=== PATIENT | female | born 1975 | race Caucasian/White ===

== ENCOUNTER 2017-02-04 11:27 | Day surgery (SDC) | payer BC ==
[~2017-02-04 11:27] MED LIST: Lactated Ringers 1,000 ML IV SCH; Lidocaine 2% 5 ML SDV ONE; Midazolam 1 MG/ML 2 ML SDV ONE; Ondansetron 4 MG/2 ML SDV ONE; Propofol 200 MG/20 ML SDV ONE; fentaNYL 250 MCG/5 ML SDV ONE
--- NOTE | 2017-02-04 12:54 | PCM.PREANE ---
Preanesthetic Assessment - Anesthesia/Transfusion/Family Hx Anesthesia History: Prior Anesthesia Without Reaction Family History of Anesthesia Reaction: No Transfusion History: No Prior Transfusion(s) Intubation History: Unknown - Review of Systems General: No Symptoms Pulmonary: No Symptoms Cardiovascular: No Symptoms Gastrointestinal: No symptoms Neurological: No Symptoms Other: Reports: None - Physical Assessment O2 Sat by Pulse Oximetry: 99 Respiratory Rate: 16 Vital Signs: Last Vital Signs Temp 37.0 C 02/04/17 11:45 Pulse 62 02/04/17 11:45 Resp 16 02/04/17 11:45 BP 116/80 02/04/17 11:45 Pulse Ox 99 02/04/17 11:45 Height: 1.66 m Weight: 73.028 kg ASA Class: 2 Mental Status: Alert & Oriented x3 Airway Class: Mallampati = 2 Dentition: Reports: Normal Dentition Thyro-Mental Finger Breadths: 3 Mouth Opening Finger Breadths: 3 ROM/Head Extension: Full Lungs: Clear to auscultation, Normal respiratory effort Cardiovascular: Regular Rate, Regular Rhythm - Allergies Allergies/Adverse Reactions: Allergies Allergy/AdvReac Type Severity Reaction Status Date / Time No Known Allergies Allergy Verified 12/21/15 09:08 - Blood Blood Available: No - Anesthesia Plan Pre-Op Medication Ordered: None - Acknowledgements Anesthesia Type Planned: General Anesthesia Pt an Appropriate Candidate for the Planned Anesthesia: Yes Alternatives and Risks of Anesthesia Discussed w Pt/Guardian: Yes Pt/Guardian Understands and Agrees with Anesthesia Plan: Yes PreAnesthesia Questionnaire HEENT History: Reports: Sinusitis Genitourinary History: Reports: None [employer] HELPER History: Reports: Dysfunctional uterine bleeding, Polycystic Ovaries, , Spontaneous Endocrine/Metabolic History: Reports: Other (see below) Other Endocrine/Metabolic History: hx hypothyroidism in the past, no longer on meds - Past Surgical History Head Surgeries/Procedures: Reports: None GI Surgical History: Reports: Bariatric procedure, Other (see below) Other GI Surgeries/Procedures: lap band surgery Female Surgical History: Reports: section (x3), Dilitation & evacuation Other Female Surgeries/Procedures: c/section x3, D&C - SUBSTANCE USE Smoking Status *Q: Never Smoker Second Hand Smoke Exposure: No Recreational Drug Use History: No - HOME MEDS Home Medications: Home Meds . [No Known Home Meds] 12/21/15 [History] - CURRENT (IN HOUSE) MEDS Current Meds: Current Medications Fentanyl (Sublimaze) 50 mcg IVPUSH Q5M PRN PRN Reason: Pain (severe 7-10) Stop: 02/05/17 11:00 Lactated Ringer's (Ringers, Lactated) 1,000 mls @ 125 mls/hr IV ASDIRECTED [facility] Discontinued Medications Fentanyl (Sublimaze) Confirm Administered Dose 250 mcg .ROUTE .STK-MED ONE Stop: 02/04/17 11:20 Lidocaine (Xylocaine-Mpf 2%) Confirm Administered Dose 5 ml .ROUTE .STK-MED ONE Stop: 02/04/17 11:20 Midazolam HCl (Versed 1 Mg/Ml) Confirm Administered Dose 2 mg .ROUTE .STK-MED ONE Stop: 02/04/17 11:20 Ondansetron HCl (Zofran) Confirm Administered Dose 4 mg .ROUTE .STK-MED ONE Stop: 02/04/17 11:20 Propofol (Diprivan 20 Ml) Confirm Administered Dose 200 mg .ROUTE .STK-MED ONE Stop: 02/04/17 11:20
[2017-02-04] MEDS ORDERED: ceFAZolin 1 GM in Premix Bag 1 BAG IV ONE (14:03)
--- NOTE | 2017-02-04 14:12 | PCM.OPNOTE ---
- General Post-Op/Procedure Note Date of Surgery/Procedure: 02/04/17 Operative Procedure(s): Diagnostic hysteroscopy, endometrial biopsy Findings: Severely adhesed intrauterine cavity--multiple dense synechiae. Pre Op Diagnosis: Menorrhagia Post-Op Diagnosis: same Anesthesia Technique: General LMA Primary Surgeon: Rosy Wellington Pathology: Endometrial biopsy Fluid Replacement, Intraop: 1,000 (2000 mL NS deficit) EBL in mLs: 10 Complications: none known Condition: Good Free Text/Narrative:: Dictation [id number]
[2017-02-04] MEDS: fentaNYL 100 MCG/2 ML SDV IVPUSH PRN ×2 (14:19→14:24)
--- NOTE | 2017-02-04 15:26 | PCM48HPAN ---
Post Anesthesia Note - EVALUATION WITHIN 48HRS OF ANESTHETIC Vital Signs in Normal Range: Yes Patient Participated in Evaluation: Yes Respiratory Function Stable: Yes Airway Patent: Yes Cardiovascular Function Stable: Yes Hydration Status Stable: Yes Pain Control Satisfactory: Yes Nausea and Vomiting Control Satisfactory: Yes Mental Status Recovered: Yes
[2017-02-04 16:21] VITALS: BP 114/78
--- NOTE | 2017-02-05 09:32 | OR ---
SURGEON: Rosy Wellington M.D. DATE OF PROCEDURE: PREOPERATIVE DIAGNOSES: 1. Menorrhagia. 2. Stenotic cervix. POSTOPERATIVE DIAGNOSES: 1. Menorrhagia. 2. Stenotic cervix. 3. Intrauterine adhesions. PROCEDURE: 1. Diagnostic hysteroscopy. 2. Endometrial biopsy. ANESTHESIA: General LMA. ESTIMATED BLOOD LOSS: 10 mL. FLUIDS: 1000 mL crystalloid. Fluid deficit 2000 mL normal saline with hysteroscopy. COMPLICATIONS: Uterine perforation. DISPOSITION: The patient to PACU, stable. PROCEDURE DETAILS: Kaitlin is a 41-year-old G3, P3, who presents today for further evaluation of menorrhagia. While being evaluated in the clinic, attempted endometrial biopsy was performed; however, she has significantly stenotic cervical os making the exam extremely uncomfortable for the patient. An attempted dilatation retrieved only a small amount of tissue, therefore given the significant discomfort, the patient opted to proceed with further evaluation hysteroscopically with further endometrial sampling to be performed and if benign on frozen section to proceed with thermal endometrial ablation. Pelvic sonogram was normal. On the day of procedure, once again reviewed the procedure, questions were answered, and informed consent was obtained. The patient was taken to the operative room, where she underwent general LMA, was placed in modified dorsal lithotomy position and was prepped and draped in the usual sterile fashion. SCDs lower extremities. The bladder was drained. Time-out was performed. After being prepped and draped in the usual sterile fashion, the speculum was introduced in the vagina. The posterior lip of the cervix was grasped with a single-tooth tenaculum. The cervix was gently dilated to 3 mm and the fundus was sounded to be 8 mm. Endometrial sampling was performed at this time. The cervix was now gently dilated to 5 mm. The hysteroscope was introduced using normal saline for distention media. There were significant adhesions and synechiae present. I am not able to clearly identify ostia. There was just a webbing of synechiae noted and while visualizing the cavity it was noted there was an increasing fluid deficit and with further evaluation, I was able to see a region of perforation along the posterior fundal region of the uterus. Therefore, the hysteroscope was removed. Further gentle endocervical endometrial biopsy was performed and this specimen will be sent to Pathology for further analysis. However, I am not able to proceed with further management in the form of ablation given the stenotic and adhesed uterine cavity and the region of perforation. Therefore, all instruments were removed from the vagina. Hemostasis appears evident. The patient has tolerated the procedure well. She will go to PACU in stable condition. Specimens to pathology. GUILLERMO / RENETTA /[id number] ESTEFANY
== END 2017-02-04 15:42 | disposition home or self-care (01) ==
LOC: MW.SDS 11:27
PROVIDERS: ATTEND Obstetrics & Gynecology
DX: N92.0 Excessive and frequent menstruation with regular cycle (principal); N88.2 Stricture and stenosis of cervix uteri; E03.9 Hypothyroidism, unspecified; Z98.890 Other specified postprocedural states; D64.9 Anemia, unspecified
CPT/HCPCS: 58558; J0690; J2250; J2405; J3010; J7120; 00952; 88305; J2704

== ENCOUNTER 2017-05-19 06:22 | Day surgery (SDC) | payer BC ==
[~2017-05-19 06:22] MED LIST changes: -Lactated Ringers 1,000 ML IV SCH; -Lidocaine 2% 5 ML SDV ONE; -Midazolam 1 MG/ML 2 ML SDV ONE; -Ondansetron 4 MG/2 ML SDV ONE; -Propofol 200 MG/20 ML SDV ONE; +Sodium Chloride 0.9% 10 ML Syringe FLUSH PRN; +Sodium Chloride 0.9% 2.5 ML Syringe FLUSH PRN; +ceFAZolin 1 GM in Premix Bag 1 BAG IV ONE; -fentaNYL 250 MCG/5 ML SDV ONE
[2017-05-19] MEDS ORDERED: Lactated Ringers 1,000 ML IV SCH (07:00)
[2017-05-19] MEDS ORDERED: Bupivacaine 0.25% 10 ML SDV ONE (07:14)
[2017-05-19] MEDS ORDERED: Methylene Blue 50 MG/10 ML Ampule ONE (07:14)
[2017-05-19] MEDS ORDERED: Fluorescein 5 ML Vial ONE (07:14)
--- NOTE | 2017-05-19 07:16 | PCM.PREANE ---
Preanesthetic Assessment - Anesthesia/Transfusion/Family Hx Anesthesia History: Prior Anesthesia Without Reaction Family History of Anesthesia Reaction: No Transfusion History: No Prior Transfusion(s) Intubation History: Unknown - Review of Systems General: No Symptoms Pulmonary: No Symptoms Cardiovascular: No Symptoms Gastrointestinal: No Symptoms Neurological: No Symptoms Other: Reports: None - Physical Assessment NPO Status Date: 05/18/17 NPO Status Time: 19:00 O2 Sat by Pulse Oximetry: 98 Respiratory Rate: 16 Vital Signs: Last Vital Signs Temp 36.6 C 05/19/17 06:49 Pulse 71 05/19/17 06:49 Resp 16 05/19/17 06:49 BP 134/78 05/19/17 06:49 Pulse Ox 98 05/19/17 06:49 Height: 1.66 m Weight: 73.482 kg ASA Class: 2 Mental Status: Alert & Oriented x3 Airway Class: Mallampati = 1 Dentition: Reports: Normal Dentition ROM/Head Extension: Full Lungs: Clear to Auscultation Cardiovascular: Regular Rate - Lab Values: Laboratory Last Values WBC 5.26 K/uL (4.0-11.0) 05/19/17 06:50 RBC 4.38 M/uL (4.30-5.90) 05/19/17 06:50 Hgb 10.0 g/dL (12.0-16.0) L 05/19/17 06:50 Hct 33.2 % (36.0-46.0) L 05/19/17 06:50 MCV 75.8 fL (80.0-98.0) L 05/19/17 06:50 MCH 22.8 pg (27.0-32.0) L 05/19/17 06:50 MCHC 30.1 g/dL (31.0-37.0) L 05/19/17 06:50 RDW Std Deviation 47.1 fl (28.0-62.0) 05/19/17 06:50 RDW Coeff of Star 20 % (11.0-15.0) H 05/19/17 06:50 Plt Count 344 K/uL (150-400) 05/19/17 06:50 MPV 9.70 fL (7.40-12.00) 05/19/17 06:50 Nucleated RBC % 0.0 /100WBC 05/19/17 06:50 Nucleated RBCs # 0 K/uL 05/19/17 06:50 - Allergies Allergies/Adverse Reactions: Allergies Allergy/AdvReac Type Severity Reaction Status Date / Time No Known Allergies Allergy Verified 05/13/17 15:57 - Anesthesia Plan Pre-Op Medication Ordered: None - Acknowledgements Anesthesia Type Planned: General Anesthesia Pt an Appropriate Candidate for the Planned Anesthesia: Yes Alternatives and Risks of Anesthesia Discussed w Pt/Guardian: Yes Pt/Guardian Understands and Agrees with Anesthesia Plan: Yes PreAnesthesia Questionnaire HEENT History: Genitourinary History: Reports: None [employer] MEMBER History: Reports: Dysfunctional Uterine Bleeding, Polycystic Ovaries, , Spontaneous Endocrine/Metabolic History: Reports: Other (See Below) Other Endocrine/Metabolic History: hx hypothyroidism in the past, no longer on meds Hematologic History: Reports: Anemia - Past Surgical History Head Surgeries/Procedures: Reports: None GI Surgical History: Reports: Bariatric Procedure, Other (See Below) Other GI Surgeries/Procedures: lap band surgery, later removed Female Surgical History: Reports: Section, Dilitation & Evacuation Other Female Surgeries/Procedures: c/section x3, D&C - SUBSTANCE USE Smoking Status *Q: Never Smoker Second Hand Smoke Exposure: No Recreational Drug Use History: No - HOME MEDS Home Medications: Home Meds Iron,Carbonyl/Vit C/Vit B12/Fa [Iron 100 Plus Tablet] 1 tab PO DAILY 05/13/17 [ History] - CURRENT (IN HOUSE) MEDS Current Meds: Current Medications Lactated Ringer's (Ringers, Lactated) 1,000 mls @ 125 mls/hr IV ASDIRECTED [facility] Last Admin: 05/19/17 07:04 Dose: 125 mls/hr Sodium Chloride (Saline Flush) 10 ml FLUSH ASDIRECTED PRN PRN Reason: Keep Vein Open Sodium Chloride (Saline Flush) 2.5 ml FLUSH ASDIRECTED PRN PRN Reason: Keep Vein Open Discontinued Medications Cefazolin Sodium/Dextrose 1 gm (/ Premix) 50 mls @ 100 mls/hr IV ONETIME ONE Stop: 05/19/17 05:29
[2017-05-19 07:27] LABS: CHLORIDE,CL 109 mmol/L (98-110); SODIUM,NA 140 mmol/L (136-146)
[2017-05-19] MEDS ORDERED: fentaNYL 100 MCG/2 ML SDV ONE ×5 (07:31→09:21)
[2017-05-19] MEDS ORDERED: Midazolam 1 MG/ML 2 ML SDV ONE (07:31)
[2017-05-19] MEDS ORDERED: Furosemide 40 MG/4 ML VIAL ONE (07:31)
[2017-05-19] MEDS ORDERED: Rocuronium 10 MG/ML 10 ML Syringe ONE (07:31)
[2017-05-19] MEDS ORDERED: Ondansetron 4 MG/2 ML SDV ONE (07:31)
[2017-05-19] MEDS ORDERED: Propofol 200 MG/20 ML SDV ONE (07:31)
[2017-05-19] MEDS ORDERED: Dexamethasone 4 MG/ML 5 ML MDV ONE (07:31)
[2017-05-19] MEDS ORDERED: Lidocaine 2% 5 ML SDV ONE (07:31)
[2017-05-19] MEDS ORDERED: HYDROmorphone 2 MG/ML Syringe ONE (07:32)
[2017-05-19] MEDS ORDERED: diphenhydrAMINE 50 MG/ML SDV ONE (07:34)
[2017-05-19] MEDS ORDERED: Labetalol 5 MG/ML 5 ML Syringe ONE (09:20)
[2017-05-19] MEDS ORDERED: Neostigmine Methylsulfate 1 MG/ML 5 ML Syringe ONE (09:39)
[2017-05-19] MEDS ORDERED: Ketorolac 30 MG/ML SDV ONE (09:39)
[2017-05-19] MEDS ORDERED: Morphine 4 MG/ML Syringe IVPUSH PRN (10:25)
[2017-05-19] MEDS ORDERED: Ondansetron 4 MG/2 ML SDV IVPUSH PRN (10:25)
[2017-05-19] MEDS ORDERED: Ketorolac 30 MG/ML SDV IVPUSH ONE (10:25)
[2017-05-19] MEDS ORDERED: Aluminum Hydroxide/Magnesium Hydroxide/Simethicone Susp 30 ML Cup PO PRN (10:25)
[2017-05-19] MEDS ORDERED: Ketorolac 30 MG/ML SDV IVPUSH PRN (10:25)
[2017-05-19] MEDS ORDERED: Simethicone 80 MG Tab.Chew PO PRN (10:25)
[2017-05-19] MEDS ORDERED: Acetaminophen/oxyCODONE 325-5 MG Tab PO PRN (10:25)
[2017-05-19] MEDS ORDERED: Promethazine 25 MG/ML SDV IM PRN (10:25)
[2017-05-19] MEDS ORDERED: Belladonna Alkaloids/Opium 16.2-30 MG Supp RECTAL PRN (10:25)
[2017-05-19] MEDS ORDERED: Morphine 2 MG/ML Syringe IVPUSH PRN (10:25)
--- NOTE | 2017-05-19 10:25 | PCM.OPNOTE ---
- General Post-Op/Procedure Note Date of Surgery/Procedure: 05/19/17 Operative Procedure(s): LAVH/Bilateral salpingectomy/cystoscopy/right ovarian biopsy x 2 Findings: Polycystic ovaries [place], uterus Multicystic fallopian tubes Bilateral patent ureters Pre Op Diagnosis: Menorrhagia. PCOS. Anemia Post-Op Diagnosis: Same Anesthesia Technique: General ET Tube Primary Surgeon: Rosy Wellington Intern Brand: Roselyn Sandoval Pathology: uterus, fallopian tubes, right ovarian biopsy x 2 Fluid Replacement, Intraop: 2,600 EBL in mLs: 200 Complications: none known Condition: Good Free Text/Narrative:: Dictation [id number]
[2017-05-19] MEDS: fentaNYL 100 MCG/2 ML SDV IVPUSH PRN ×2 (10:51→10:57)
[2017-05-19] MEDS: Acetaminophen/oxyCODONE 325-5 MG Tab PO PRN ×3 (12:02→20:37)
[2017-05-19] MEDS ORDERED: LORazepam 2 MG/ML MDV IVPUSH ONE (12:15)
--- NOTE | 2017-05-19 18:16 | PCM.SN ---
- Free Text/Narrative Note: Patient is resting, sleepy. Her pain is controlled overall--just some cramping. She denies nausea. She has ambulated minimally within the room. Explained intraop findings and procedure. VS are stable, urine output is good. Continue postoperative cares. Anticipate discharge in the morning.
[2017-05-20] MEDS: Acetaminophen/oxyCODONE 325-5 MG Tab PO PRN ×2 (00:38→08:07)
[2017-05-20 05:15] LABS: CHLORIDE,CL 107 mmol/L (98-110); SODIUM,NA 138 mmol/L (136-146)
[2017-05-20 08:03] VITALS: BP 104/69
--- NOTE | 2017-05-20 09:52 | PCM.SURGPN ---
- General Info Date of Service: 05/20/17 POD#: 1 Functional Status: Reports: Pain Controlled, Tolerating Diet, Ambulating, Urinating - Review of Systems General: Reports: Fatigue. Denies: Fever, Weakness Pulmonary: Denies: Shortness of Breath Cardiovascular: Denies: Chest Pain, Palpitations, Lightheadedness Gastrointestinal: Reports: Abdominal Pain (incisions are not causing pain, just having postop pelvic cramping--improved today). Denies: Nausea, Vomiting Genitourinary: Denies: Dysuria, Flank Pain Neurological: Denies: Confusion, Dizziness, Headache Psychiatric: Denies: Confusion - Patient Data Vitals - Most Recent: Last Vital Signs Temp 36.8 C 05/20/17 08:00 Pulse 64 05/20/17 08:00 Resp 22 H 05/20/17 08:00 BP 104/69 05/20/17 08:00 Pulse Ox 96 05/20/17 08:00 Weight - Most Recent: 73.482 kg I&O - Last 24 Hours: Intake & Output 05/19/17 05/20/17 05/20/17 22:59 06:59 14:59 Intake Total 1700 700 Output Total 900 2300 Balance 800 -1600 Lab Results Last 24 Hrs: Laboratory Results - last 24 hr 05/20/17 05/20/17 Range/Units 04:34 04:34 WBC 7.68 (4.0-11.0) K/uL RBC 3.39 L (4.30-5.90) M/uL Hgb 7.8 L (12.0-16.0) g/dL Hct 26.0 L (36.0-46.0) % MCV 76.7 L (80.0-98.0) fL MCH 23.0 L (27.0-32.0) pg MCHC 30.0 L (31.0-37.0) g/dL RDW Std Deviation 47.0 (28.0-62.0) fl RDW Coeff of Star 20 H (11.0-15.0) % Plt Count 293 (150-400) K/uL MPV 9.70 (7.40-12.00) fL Neut % (Auto) 56.8 (48.0-80.0) % Lymph % (Auto) 30.6 (16.0-40.0) % Mckinley % (Auto) 10.9 (0.0-15.0) % Eos % (Auto) 1.3 (0.0-7.0) % Baso % (Auto) 0.4 (0.0-1.5) % Neut # (Auto) 4.4 (1.4-5.7) K/uL Lymph # (Auto) 2.4 (0.6-2.4) K/uL Mckinley # (Auto) 0.8 (0.0-0.8) K/uL Eos # (Auto) 0.1 (0.0-0.7) K/uL Baso # (Auto) 0.0 (0.0-0.1) K/uL Nucleated RBC % 0.0 /100WBC Nucleated RBCs # 0 K/uL Sodium 138 (136-146) mmol/L Potassium 3.8 (3.5-5.1) mmol/L Chloride 107 (98-110) mmol/L Carbon Dioxide 25 (21-31) mmol/L BUN 7 (6.0-23.0) mg/dL Creatinine 0.7 (0.6-1.5) mg/dL Est Cr Clr Drug Dosing 99.05 mL/min Estimated GFR (MDRD) > 60.0 ml/min Glucose 94 (60-110) mg/dL Calcium 8.3 L (8.8-10.8) mg/dL Med Orders - Current: Current Medications Al Hydroxide/Mg Hydroxide (Mag-Al Plus) 30 ml PO Q4H PRN PRN Reason: Indigestion Belladonna Alkaloids/Opium (B & O Supprettes No. 15a) 1 supp RECTAL Q4H PRN PRN Reason: Pain Fentanyl (Sublimaze) 50 mcg IVPUSH SEECOMMENT PRN PRN Reason: Pain (moderate 4-6) Last Admin: 05/19/17 10:57 Dose: 50 mcg Lactated Ringer's (Ringers, Lactated) 1,000 mls @ 125 mls/hr IV ASDIRECTED [facility] Last Admin: 05/19/17 07:04 Dose: 125 mls/hr Ketorolac Tromethamine (Toradol) 30 mg IVPUSH Q6H PRN PRN Reason: Pain (severe 7-10) Stop: 05/24/17 10:25 Last Admin: 05/19/17 15:23 Dose: 30 mg Morphine Sulfate (Morphine) 2 mg IVPUSH Q2H PRN PRN Reason: Pain (severe 7-10) Morphine Sulfate (Morphine) 4 mg IVPUSH Q2H PRN PRN Reason: Pain (severe 7-10) Last Admin: 05/19/17 11:18 Dose: 4 mg Ondansetron HCl (Zofran) 4 mg IVPUSH Q6H PRN PRN Reason: Nausea/Vomiting Oxycodone/Acetaminophen (Percocet 325-5 Mg) 1 tab PO Q4H PRN PRN Reason: Pain (moderate 4-6) Oxycodone/Acetaminophen (Percocet 325-5 Mg) 2 tab PO Q4H PRN PRN Reason: Pain (moderate 4-6) Last Admin: 05/20/17 08:07 Dose: 2 tab Promethazine HCl (Phenergan) 25 mg IM Q6H PRN PRN Reason: Nausea/Vomiting Last Admin: 05/19/17 13:40 Dose: 25 mg Simethicone (Simethicone) 80 mg PO Q6H PRN PRN Reason: Abdominal Pain Sodium Chloride (Saline Flush) 10 ml FLUSH ASDIRECTED PRN PRN Reason: Keep Vein Open Sodium Chloride (Saline Flush) 2.5 ml FLUSH ASDIRECTED PRN PRN Reason: Keep Vein Open Discontinued Medications Bupivacaine HCl (Sensorcaine-Mpf 0.25%) Confirm Administered Dose 20 ml .ROUTE .STK-MED ONE Stop: 05/19/17 07:15 Dexamethasone (Dexamethasone) Confirm Administered Dose 20 mg .ROUTE .STK-MED ONE Stop: 05/19/17 07:32 Diphenhydramine HCl (Benadryl) Confirm Administered Dose 50 mg .ROUTE .STK-MED ONE Stop: 05/19/17 07:35 Fentanyl (Sublimaze) Confirm Administered Dose 100 mcg .ROUTE .STK-MED ONE Stop: 05/19/17 07:32 Fentanyl (Sublimaze) Confirm Administered Dose 100 mcg .ROUTE .STK-MED ONE Stop: 05/19/17 07:33 Fentanyl (Sublimaze) Confirm Administered Dose 100 mcg .ROUTE .STK-MED ONE Stop: 05/19/17 07:33 Fentanyl (Sublimaze) Confirm Administered Dose 100 mcg .ROUTE .STK-MED ONE Stop: 05/19/17 09:12 Fentanyl (Sublimaze) Confirm Administered Dose 100 mcg .ROUTE .STK-MED ONE Stop: 05/19/17 09:22 Fluorescein Sodium (Ak-Fluor) Confirm Administered Dose 5 ml .ROUTE .STK-MED ONE Stop: 05/19/17 07:15 Furosemide (Lasix) Confirm Administered Dose 40 mg .ROUTE .STK-MED ONE Stop: 05/19/17 07:32 Glycopyrrolate () Confirm Administered Dose 1 mg .ROUTE .STK-MED ONE Stop: 05/19/17 09:40 Hydromorphone HCl (Dilaudid) Confirm Administered Dose 2 mg .ROUTE .STK-MED ONE Stop: 05/19/17 07:33 Cefazolin Sodium/Dextrose 1 gm (/ Premix) 50 mls @ 100 mls/hr IV ONETIME ONE Stop: 05/19/17 05:29 Last Admin: 05/19/17 14:02 Dose: Not Given Ketorolac Tromethamine (Toradol) Confirm Administered Dose 30 mg .ROUTE .ST- MED ONE Stop: 05/19/17 09:40 Ketorolac Tromethamine (Toradol) 30 mg IVPUSH ONETIME ONE Stop: 05/19/17 10:26 Last Admin: 05/19/17 14:02 Dose: Not Given Labetalol HCl (Normodyne) Confirm Administered Dose 25 mg .ROUTE .STK-MED ONE Stop: 05/19/17 09:21 Lidocaine (Xylocaine-Mpf 2%) Confirm Administered Dose 5 ml .ROUTE .STK-MED ONE Stop: 05/19/17 07:32 Lorazepam (Ativan) 1 mg IVPUSH ONETIME ONE Stop: 05/19/17 12:16 Last Admin: 05/19/17 12:21 Dose: 1 mg Methylene Blue (Provayblue) Confirm Administered Dose 50 mg .ROUTE .STK-MED ONE Stop: 05/19/17 07:15 Midazolam HCl (Versed 1 Mg/Ml) Confirm Administered Dose 2 mg .ROUTE .STK-MED ONE Stop: 05/19/17 07:32 Neostigmine Methylsulfate (Neostigmine) Confirm Administered Dose 5 mg .ROUTE .STK-MED ONE Stop: 05/19/17 09:40 Ondansetron HCl (Zofran) Confirm Administered Dose 4 mg .ROUTE .STK-MED ONE Stop: 05/19/17 07:32 Propofol (Diprivan 20 Ml) Confirm Administered Dose 200 mg .ROUTE .STK-MED ONE Stop: 05/19/17 07:32 Rocuronium Coleman (Zemuron) Confirm Administered Dose 100 mg .ROUTE .STK-MED ONE Stop: 05/19/17 07:32 - Exam Wound/Incisions: Healing Well, Dressing Dry and Intact General: Alert, Oriented Lungs: Normal Respiratory Effort Cardiovascular: Regular Rate, Regular Rhythm GI/Abdominal Exam: Normal Bowel Sounds, Soft, Non-Tender, No Distention Extremities: No Pedal Edema Skin: Warm, Dry, Intact Psy/Mental Status: Alert Physical Findings Comment:: No CVA tenderness - Problem List & Annotations (1) Menorrhagia SNOMED Code(s): 300743786 Code(s): N92.0 - EXCESSIVE AND FREQUENT MENSTRUATION WITH REGULAR CYCLE Status: Acute Current Visit: Yes - Problem List Review Problem List Initiated/Reviewed/Updated: Yes - My Orders Last 24 Hours: Active Orders 24 hr Category Date Time Status Patient Status [ADT] Routine ADT 05/19/17 10:25 Active Antiembolic Devices [RC] PER UNIT ROUTINE Care 05/19/17 10:26 Active May Shower [RC] ASDIRECTED Care 05/19/17 10:25 Active Notify Provider Intake and Out [RC] ASDIRECTED Care 05/19/17 10:25 Active Notify Provider Vital Signs [RC] ASDIRECTED Care 05/19/17 10:25 Active Oxygen Therapy [RC] ASDIRECTED Care 05/19/17 10:25 Active RT Incentive Spirometry [RC] Q2HWA Care 05/19/17 10:25 Active Up With Assistance [RC] PER UNIT ROUTINE Care 05/19/17 10:25 Active Up ad Faith [RC] PER UNIT ROUTINE Care 05/19/17 10:25 Active Vital Signs [RC] PER UNIT ROUTINE Care 05/19/17 10:25 Active Regular Diet [DIET] Diet 05/19/17 Lunch Active Acetaminophen/oxyCODONE [Percocet 325-5 MG] Med 05/19/17 10:25 Active 1 tab PO Q4H PRN Acetaminophen/oxyCODONE [Percocet 325-5 MG] Med 05/19/17 10:25 Active 2 tab PO Q4H PRN Alum Hydrox/Mag Hydrox/Simeth [Mag-Al Plus] Med 05/19/17 10:25 Active 30 ml PO Q4H PRN Belladonna/Opium [B & O Supprettes No. 15A] Med 05/19/17 10:25 Active 1 supp RECTAL Q4H PRN Ketorolac [Toradol] Med 05/19/17 10:25 Active 30 mg IVPUSH Q6H PRN Morphine Med 05/19/17 10:25 Active 2 mg IVPUSH Q2H PRN Morphine Med 05/19/17 10:25 Active 4 mg IVPUSH Q2H PRN Ondansetron [Zofran] Med 05/19/17 10:25 Active 4 mg IVPUSH Q6H PRN Promethazine [Phenergan] Med 05/19/17 10:25 Active 25 mg IM Q6H PRN Simethicone Med 05/19/17 10:25 Active 80 mg PO Q6H PRN fentaNYL [Sublimaze] Med 05/19/17 08:52 Active 50 mcg IVPUSH SEECOMMENT PRN Heat Therapy [OM.PC] Routine Oth 05/19/17 12:12 Ordered Peripheral IV Discontinue [OM.PC] Routine Oth 05/19/17 10:25 Ordered Sequential Compression Device [OM.PC] Per Unit Routine Oth 05/19/17 10:25 Ordered Resuscitation Status Routine Resus Stat 05/19/17 10:25 Ordered Medication Orders Al Hydroxide/Mg Hydroxide (Mag-Al Plus) 30 ml PO Q4H PRN PRN Reason: Indigestion Belladonna Alkaloids/Opium (B & O Supprettes No. 15a) 1 supp RECTAL Q4H PRN PRN Reason: Pain Fentanyl (Sublimaze) 50 mcg IVPUSH SEECOMMENT PRN PRN Reason: Pain (moderate 4-6) Last Admin: 05/19/17 10:57 Dose: 50 mcg Admin: 05/19/17 10:51 Dose: 50 mcg Lactated Ringer's (Ringers, Lactated) 1,000 mls @ 125 mls/hr IV ASDIRECTED [facility] Last Admin: 05/19/17 07:04 Dose: 125 mls/hr Ketorolac Tromethamine (Toradol) 30 mg IVPUSH Q6H PRN PRN Reason: Pain (severe 7-10) Stop: 05/24/17 10:25 Last Admin: 05/19/17 15:23 Dose: 30 mg Morphine Sulfate (Morphine) 2 mg IVPUSH Q2H PRN PRN Reason: Pain (severe 7-10) Morphine Sulfate (Morphine) 4 mg IVPUSH Q2H PRN PRN Reason: Pain (severe 7-10) Last Admin: 05/19/17 11:18 Dose: 4 mg Ondansetron HCl (Zofran) 4 mg IVPUSH Q6H PRN PRN Reason: Nausea/Vomiting Oxycodone/Acetaminophen (Percocet 325-5 Mg) 1 tab PO Q4H PRN PRN Reason: Pain (moderate 4-6) Oxycodone/Acetaminophen (Percocet 325-5 Mg) 2 tab PO Q4H PRN PRN Reason: Pain (moderate 4-6) Last Admin: 05/20/17 08:07 Dose: 2 tab Admin: 05/20/17 00:38 Dose: 2 tab Admin: 05/19/17 20:37 Dose: 2 tab Admin: 05/19/17 16:34 Dose: 2 tab Admin: 05/19/17 12:02 Dose: 2 tab Promethazine HCl (Phenergan) 25 mg IM Q6H PRN PRN Reason: Nausea/Vomiting Last Admin: 05/19/17 13:40 Dose: 25 mg Simethicone (Simethicone) 80 mg PO Q6H PRN PRN Reason: Abdominal Pain Sodium Chloride (Saline Flush) 10 ml FLUSH ASDIRECTED PRN PRN Reason: Keep Vein Open Sodium Chloride (Saline Flush) 2.5 ml FLUSH ASDIRECTED PRN PRN Reason: Keep Vein Open - Assessment Assessment (Free Text/Narrative):: POD 1 status post LAVH/bilateral salpingectomy/right ovarian biopsies/cystoscopy - Plan Plan (Free Text/Narrative):: Labs reviewed, VS reviewed. Patient is feeling better this morning. She tolerated a regular diet, ambulating and voiding. She would like to go home. Discharge instructions reviewed. Infection and bleeding warnings reviewed. Follow up at [facility] 2 and 6 weeks. Patient to continue iron therapy to help correct chronic anemia, exacerbated by surgery. Discharge to home.
--- NOTE | 2017-05-20 12:06 | OR ---
SURGEON: Rosy Wellington M.D. DATE OF PROCEDURE: 05/19/2017 PREOPERATIVE DIAGNOSES: 1. Menorrhagia. 2. Polycystic ovarian syndrome. 3. Anemia. POSTOPERATIVE DIAGNOSES: 1. Menorrhagia. 2. Polycystic ovarian syndrome. 3. Anemia. PROCEDURE: Laparoscopic-assisted vaginal hysterectomy, bilateral salpingectomy, cystoscopy, right ovarian biopsy x2. ANESTHESIA: General endotracheal anesthesia. ASSISTANTS: 1. Dr. Sandoval. 2. Muriel Bone MS-4. ESTIMATED BLOOD LOSS: 200 mL. FLUIDS: 2600 mL crystalloid. COMPLICATIONS: None known. FINDINGS: Mobile uterus, uterovesical adhesions noted from previous C-sections. Polycystic ovaries. Multi-cystic fallopian tubes. Bilateral patent ureters with cystoscopy at the end of the procedure. COMPLICATIONS: None. DISPOSITION: The patient to PACU in stable condition and specimens to pathology. 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 Therefore, options had discussed with her and she would like to proceed with definitive intervention in the form of hysterectomy. Risks of the procedure have been discussed and proper consent was obtained. The patient was taken to the operating room, where she underwent general endotracheal anesthesia. She was placed in modified dorsal lithotomy position and was prepped and draped in the usual sterile fashion. SCDs to lower extremities. Metzger to gravity. Received Ancef prophylactically. A time-out was performed. A speculum was introduced in the vagina. The cervix was grasped with a single- tooth tenaculum, and uterine HUMI manipulator was gently introduced. It was not easily introduced below the speculum, given her previous hysteroscopy, however, was able to insufflate the balloon and maintain the manipulator for the laparoscopic portion of the case. Tenaculum and speculum were now removed. Gloves changed. Attention turned abdominally. The 5 mm sagittal midline infraumbilical incision was now made with the #11 blade scalpel, after insufflating the region with 0.25% Marcaine. Please see nurse's notes for total amount of local dispensed during the procedure. Carefully dissected subcutaneous tissue down to the level of the rectus fascia, which was tented upward and entered sharply. Edge of the fascia was secured with 0 Vicryl. The trocar was introduced, pneumoperitoneum was achieved, laparoscope was introduced, and peritoneal contents were identified. The uterus is mobile. I was able to fully visualize bilateral fallopian tubes. The uterovesical reflection was able to see the ureters peristalsing nicely away from the region of the operative field. Right and left lower quadrant trocars were introduced, after prepping these region with 0.25% Marcaine and creating 5 mm skin incision. Once the trocars were in place, the left fallopian tube was able to be isolated, and salpingectomy was performed up to the level of the cornua using the LigaSure. Now the utero tubo-ovarian pedicle was able to be secured down to the level of the right round ligament. The pedicle along the round ligament was able to be secured, cauterized, and transected. Continued in serial fashion down to the remainder of the broad ligament to the level of the cardinal ligament. I was able to secure these regions, cauterize, and transect. The uterovesical reflection was able to be isolated and dissected. There were some regions of thick banding of tissue, but these were transected and then now the bladder is much more mobile. The bladder was able to mobilize away from the lower uterine segment and cervix. The remainder of posterior pedicle on the left side was able to be obtained up to the level of the uterosacral ligament. Attention was now turned to perform a similar procedure on the patient's right side. The right fallopian tube was able to be isolated. Salpingectomy was performed up to the level of the cornua. The utero tubo-ovarian pedicle was now able to be secured, transected, and after being cauterized, the next pedicle up to the level of the round ligament was able be secured, cauterized, transected. The pedicle incorporating the round ligament was able to be transected followed by the remainder of the pedicle down the level of the cardinal ligament. Cardinal ligament was able be secured, cauterized, and transected. Continued to dissect along the region of the bladder flap along this side and also mobilize the bladder flap nicely with the lower uterine segment. Remainder of pedicle on the posterior side was able to be secured cauterized and transected. The right ovary in particular has small little cysts on them, which could be with her polycystic ovary; however, it is felt to be prudent to biopsy this region. However, while awaiting for the biopsy for assessment, we proceeded vaginally. Laparoscopic instruments were now removed. Pneumoperitoneum was released. The hips were flexed. The HUMI uterine manipulator was gently removed. The weighted speculum and vaginal side erazo, anterior and deeper, were now placed. Cervix grasped with Sulaiman clamps. Cervix was circumscribed with Bovie cautery. Anteriorly and posteriorly, the overlying mucosa was dissected bluntly away from underlying peritoneum. Posteriorly, the peritoneum and abdomen were entered sharply. A longer speculum replaced the shorter. Anteriorly, I was able to bluntly introduce into the peritoneal cavity. The farideh was now replaced to mobilize the bladder away from the operative field. Uterosacral ligament on either side was secured with James clamp, transected, and suture-ligated. Remainder two pedicles on either side were re-secured, transected, and suture-ligated with 2-0 Vicryl. Cervix, uterus, bilateral fallopian tubes were now removed and will be sent to Pathology for further analysis. Will ask for serial sections of the fallopian tube. The 2-0 Vicryl along the uterosacral ligaments on either side were now secured to the vaginal apex. There was a pedicle directly above this, which was oozing, and this was secured with a James clamp, and a further ligated with 2-0 Vicryl. The remainder of pedicles were inspected and found to be hemostatic. The posterior cuff along the posterior peritoneum was now closed with culdoplasty using 2-0 Vicryl and reefing the posterior peritoneum from one uterosacral ligament to the next. The suture was now tied down. Hemostasis appears evident. The vaginal cuff was now closed using 0 Vicryl in continuous running locked fashion. The cuff was inspected and found to be hemostatic. The vaginal instruments were removed. The Metzger catheter balloon was deflated. The catheter was removed. The IV fluorescein and Lasix have been delivered via IV. Cystoscope was now introduced into the bladder. The dome of the bladder was able to be visualized followed by the trigone. The right ureteral orifice followed by the left ureteral orifice were able to be visualized and fluorescein dye and urine seen streaming from them, helping to ensure ureteral patency. The bladder was now drained. Metzger catheter was replaced after the cystoscope has been removed. The vaginal cuff once again inspected and found to be hemostatic. Gloves changed. Attention turned abdominally. Pneumoperitoneum was once again achieved. The laparoscope was introduced. The pedicles are inspected. Region was well irrigated, suction dried. Relief pressure was decreased to 5 mmHg, and the pedicles were once again inspected and found to be hemostatic. Attention was now returned to performing the biopsy along the right ovary. Using laparoscopic biopsy forceps, was able to purchase 2 small regions of tissue, will be sent to Pathology for further analysis. This region was now cauterized with LigaSure, well irrigated, and suctioned dry. Hemostasis found to be evident. Therefore, pneumoperitoneum was released. Laparoscopic instruments were removed. Trocars were removed under direct visualization followed by the infraumbilical trocar and laparoscope. The infraumbilical fascia was reapproximated using 0 Vicryl followed by closure of the remainder of skin incisions using 4-0 Monocryl in subcuticular fashion. Sponge, instrument, needle counts were correct x2. The patient has tolerated this procedure well overall. She will go to PACU in stable condition. Specimens to Pathology. GUILLERMO / RENETTA /[id number] ESTEFANY
--- NOTE | 2017-05-20 14:10 | PCM48HPAN ---
Post Anesthesia Note - EVALUATION WITHIN 48HRS OF ANESTHETIC Vital Signs in Normal Range: Yes Patient Participated in Evaluation: Yes Respiratory Function Stable: Yes Airway Patent: Yes Cardiovascular Function Stable: Yes Hydration Status Stable: Yes Pain Control Satisfactory: Yes Nausea and Vomiting Control Satisfactory: Yes Mental Status Recovered: Yes - COMMENTS/OBSERVATIONS Free Text/Narrative:: No apparent anesthesia complications
== END 2017-05-20 11:00 | disposition home or self-care (01) ==
LOC: MW.SDS 06:22 → MW.MS 10:16 → UNDOADMOB 10:25 → MW.SDS 10:25 → UNDODISOB 05-20 11:00 → MW.SDS 05-20 11:00
PROVIDERS: ATTEND Obstetrics & Gynecology
DX: D28.2 Benign neoplasm of uterine tubes and ligaments (principal); E03.9 Hypothyroidism, unspecified; Z79.899 Other long term (current) drug therapy; Z98.890 Other specified postprocedural states
CPT/HCPCS: 36415; 49321; 58552; 80048; 84703; 85025; 85027; 86850; 86900; 86901; 88305; 88307; A9270; J1100; J1170; J1200; J1885; J1940; J2060; J2250; J2270; J2405; J2550; J3010; J7120; 00840; J2704

== ENCOUNTER 2018-06-18 11:56 | Day surgery (SDC) | payer BC ==
[~2018-06-18 11:56] MED LIST changes: +Lactated Ringers 1,000 ML IV SCH; -ceFAZolin 1 GM in Premix Bag 1 BAG IV ONE
--- NOTE | 2018-06-18 12:33 | PCM.PREANE ---
Preanesthetic Assessment - Anesthesia/Transfusion/Family Hx Anesthesia History: Prior Anesthesia Without Reaction Family History of Anesthesia Reaction: No Transfusion History: No Prior Transfusion(s) Intubation History: Unknown - Review of Systems General: No Symptoms Pulmonary: No Symptoms Cardiovascular: No Symptoms Gastrointestinal: Hematochezia Neurological: No Symptoms Other: Reports: None - Physical Assessment O2 Sat by Pulse Oximetry: 100 Respiratory Rate: 16 Vital Signs: Last Vital Signs Temp 36.5 C 06/18/18 12:10 Pulse 63 06/18/18 12:10 Resp 16 06/18/18 12:10 BP 133/85 06/18/18 12:10 Pulse Ox 100 06/18/18 12:10 Height: 1.68 m Weight: 75.75 kg ASA Class: 2 Mental Status: Alert & Oriented x3 Airway Class: Mallampati = 2 Dentition: Reports: Normal Dentition Thyro-Mental Finger Breadths: 3 Mouth Opening Finger Breadths: 3 ROM/Head Extension: Full Lungs: Clear to Auscultation, Normal Respiratory Effort Cardiovascular: Regular Rate, Regular Rhythm - Allergies Allergies/Adverse Reactions: Allergies Allergy/AdvReac Type Severity Reaction Status Date / Time No Known Allergies Allergy Verified 06/15/18 10:09 - Blood Blood Available: No - Anesthesia Plan Pre-Op Medication Ordered: None - Acknowledgements Anesthesia Type Planned: MAC Pt an Appropriate Candidate for the Planned Anesthesia: Yes Alternatives and Risks of Anesthesia Discussed w Pt/Guardian: Yes Pt/Guardian Understands and Agrees with Anesthesia Plan: Yes PreAnesthesia Questionnaire HEENT History: Reports: Sinusitis Gastrointestinal History: Reports: Chronic Constipation Genitourinary History: Reports: None, Other (See Below) (h/o UTI) TYPING SECRETARY History: Reports: Polycystic Ovaries Endocrine/Metabolic History: Reports: Other (See Below) Other Endocrine/Metabolic History: hx hypothyroidism in the past, no longer on meds Hematologic History: Reports: Anemia - Past Surgical History Female Surgical History: Reports: Section - SUBSTANCE USE Smoking Status *Q: Never Smoker Tobacco Use Within Last Twelve Months: No Recreational Drug Use History: No - HOME MEDS Home Medications: Home Meds . [No Known Home Meds] 06/15/18 [History] - CURRENT (IN HOUSE) MEDS Current Meds: Current Medications Lactated Ringer's (Ringers, Lactated) 1,000 mls @ 125 mls/hr IV ASDIRECTED VIRGIL Last Admin: 06/18/18 12:15 Dose: 125 mls/hr Sodium Chloride (Saline Flush) 10 ml FLUSH ASDIRECTED PRN PRN Reason: Keep Vein Open Sodium Chloride (Saline Flush) 2.5 ml FLUSH ASDIRECTED PRN PRN Reason: Keep Vein Open Sodium Chloride (Saline Flush) 10 ml FLUSH ASDIRECTED PRN PRN Reason: Keep Vein Open Sodium Chloride (Saline Flush) 2.5 ml FLUSH ASDIRECTED PRN PRN Reason: Keep Vein Open
[2018-06-18] MEDS ORDERED: Propofol 200 MG/20 ML SDV ONE (13:15)
[2018-06-18] MEDS ORDERED: Midazolam 1 MG/ML 2 ML SDV ONE (13:31)
[2018-06-18] MEDS ORDERED: ceFAZolin 1 GM Vial ONE (13:39)
--- NOTE | 2018-06-18 14:33 | PCM.OPNOTE ---
- General Post-Op/Procedure Note Date of Surgery/Procedure: 06/18/18 Operative Procedure(s): Diagnostic colonoscopy Findings: Grade 4 hemorrhoids Pre Op Diagnosis: bright red bleeding per rectum Post-Op Diagnosis: Grade 4 hemorrhoids Anesthesia Technique: MAC Primary Surgeon: Ophelia Matthews Condition: Good
[2018-06-18 15:17] VITALS: BP 121/79
--- NOTE | 2018-06-19 13:37 | OR ---
SURGEON: BLANCA FLANAGAN MD DATE OF PROCEDURE: 06/18/2018 PREOPERATIVE DIAGNOSIS: Bright red bleeding per rectum. POSTOPERATIVE DIAGNOSIS: Grade 4 hemorrhoid. PROCEDURE PERFORMED: Diagnostic colonoscopy. ANESTHESIA: MAC. INSTRUMENT USED: Olympus colonoscope. EXTENT OF EXAM: To the cecum. PREPARATION: Good. LIMITATIONS: None. INDICATION FOR EXAMINATION: The patient is a 42-year-old female, who has had several months worth of bright red bleeding per rectum. She has tried conservative measures since she knows she has hemorrhoids, however, this has not helped. The decision was made to proceed with a diagnostic colonoscopy. I explained the procedure, expected perioperative course, and risks including bleeding, infection, or damage to surrounding structures including perforation. The patient verbalized understanding and wishes to proceed. PROCEDURE IN DETAIL: The patient was brought to the endoscopy suite and placed in the left lateral decubitus position. A time-out was completed verifying the patient's name, age, date of , allergies, and procedure to be performed. Monitored anesthesia care was induced and continuous oxygen was provided via nasal cannula throughout the procedure. After adequate sedation was achieved, a digital rectal exam was performed. This exam was within normal limits. This exam revealed grade 4 internal hemorrhoids. A well lubricated colonoscope was inserted in the rectum and advanced under direct visualization to the level of the cecum. The cecum was identified by both visual and anatomic landmarks. A photograph was taken of the cecal cap. The scope was then fully withdrawn while examining the color, texture, anatomy, and integrity of mucosa from the cecum to the anal canal. The findings were consistent with normal colonic mucosa. The scope was then brought into the rectum and retroflexed to allow visualization of the anal canal opening. This again revealed large internal hemorrhoids. There was no evidence of active bleeding. The scope was then straightened out and fully withdrawn. The patient tolerated the procedure well and was taken to the PACU in stable condition. The cecum to anus time was 6 minutes. ENDOSCOPIC DIAGNOSIS: Grade 4 hemorrhoids RECOMMENDATIONS: I visited with the patient in the postoperative care area regarding her diagnosis. She has been asymptomatic for the past several weeks. She understands regulating her bowel habits with fiber is important in preventing any further bright red bleeding per rectum. If she would like to discuss this further she can follow-up in clinic in 2 weeks otherwise she will not need another colonoscopy for 10 years. ELMER JACKSON /[id number] MTDEddie
== END 2018-06-18 15:08 | disposition home or self-care (01) ==
LOC: MW.SDS 11:56
PROVIDERS: ATTEND Surgery
DX: K62.5 Hemorrhage of anus and rectum (principal); K64.3 Fourth degree hemorrhoids; K64.8 Other hemorrhoids
CPT/HCPCS: 45378; J0690; J2250; J2704; J7120

== ENCOUNTER 2021-04-19 13:00 | Emergency (ER) | payer BC ==
[2021-04-19] MEDS ORDERED: Diphtheria,Pertussis(Acell),Tetanus Vaccine 0.5 ML Syringe IM ONE (13:05)
[2021-04-19] MEDS ORDERED: Bacitracin Oint 1 GM U/D Packet TOP ONE (13:05)
[2021-04-19] MEDS ORDERED: Lidocaine/EPINEPHrine/Tetracaine Soln 1 ML TOP ONE (13:28)
[2021-04-19] MEDS ORDERED: Acetaminophen/oxyCODONE 325-5 MG Tab PO ONE (13:28)
[2021-04-19] MEDS ORDERED: Lidocaine 1% PF 2 ML SDV INJECT ONE (13:28)
--- NOTE | 2021-04-19 13:33 | EDM.PDOC ---
ED HPI GENERAL MEDICAL PROBLEM - General Chief Complaint: Laceration Stated Complaint: RIGHT OSCAR IS RIPPED Time Seen by Provider: 04/19/21 13:06 Source of Information: Reports: Patient History Limitations: Reports: No Limitations - History of Present Illness INITIAL COMMENTS - FREE TEXT/NARRATIVE: HISTORY AND PHYSICAL: History of present illness: Patient is a 49-year-old female who presents to the emergency room with complaints of right oscar pain. Patient was doing a box jump when she missed, hitting her mid oscar on the wooden box resulting in a laceration. She states sh e has "bone pain" and concerned she broke something. Denies any other extremity injury. Did not hit her head or have any loss of consciousness. She offers no systemic complaints. Unsure of her last tetanus update Review of systems: As per history of present illness and below otherwise all systems reviewed and negative. Past medical history: As per history of present illness and as reviewed below otherwise noncontributory. Surgical history: As per history of present illness and as reviewed below otherwise noncontributory. Social history: See social history for further information Family history: As per history of present illness and as reviewed below otherwise noncontributory. Physical exam: General: Well developed and well nourished 45 year old female. Alert and orientated x 3. Nontoxic in appearance and in no acute distress. Vital signs are stable and have been reviewed by me. Nursing notes were reviewed. HEENT: Atraumatic, normocephalic, pupils equal and reactive bilaterally, negative for conjunctival pallor or scleral icterus, mucous membranes moist, nontender, trachea midline. No drooling or trismus noted. No meningeal signs. No hot potato voice noted. Lungs: Clear to auscultation bilaterally. No wheezes, rales, or rhonchi. Chest nontender. Normal work of breathing, no accessory muscles used. Heart: S1S2, regular rate and rhythm without overt murmur, gallops, or rubs. No JVD. No peripheral edema Abdomen: Soft, nondistended, nontender. Negative for masses or costovertebral tenderness. Skin: 7cm x 5 cm "V" shaped laceration to right anterior mid-oscar. Remaining skin is intact, warm, dry. No lesions or rashes noted. Hematologic: No petechiae or purpra. Mucosa appropriate color and normal nail bed color and refill. Extremities: See SKIN for details. She moves all extremities per self without difficulty or deficits, soft tissue injury with laceration, negative for cords or calf pain. Neurovascular unremarkable. Neuro: Awake, alert, oriented. Cranial nerves II through XII unremarkable. Cerebellum unremarkable. Motor and sensory unremarkable throughout. Exam nonfocal. Psychiatric: Mood and affect are appropriate. Normal thought process. Answering questions appropriately. Notes: *This patient was seen and evaluated during the 2019 SARS-CoV-2 novel coronavirus pandemic period. Community viral transmission is ongoing at time of this encounter and the emergency department is operating under pandemic response procedures. Patient is a 45-year-old female who presents to the emergency room with complaints of a laceration to the mid right oscar after a fall. She states that she hit her osacr on a wooden box and has pain in the "bone". She has a large laceration that is wrapped in an David wrap. Patient states she has not had stitches before and is nervous. I will do topical let gel prior to injecting with lidocaine. Topical LET gel was allowed to sit for 15 minutes. She does request something for pain at this time. We will give her a Percocet. 1% lidocaine was used to anesthetize the area. Chlorhexidine and wound wash were used to cleanse the site. Usual and customary procedures were followed for suture placement. 4-0 nylon, #14 interrupted sutures were placed. Bacitracin nonstick dressing applied. Tetanus has been updated. X-ray shows soft tissue laceration of the mid lower extremity without evidence of underlying fracture. I have talked with the patient about today's findings, in addition to providing specific details for plan of care. Reassessment at the time of disposition demonstrates that the patient is in no acute distress. The patient is stable for discharge, counseling was provided and we discussed in great detail signs and symptoms that would prompt them to return to the Emergency Department. Medication, follow up and supportive care measures were reviewed and discussed. Voices understanding and is agreeable to plan of care. Denies any further questions or concerns at this time. Diagnostics: Tib-fib x-ray Therapeutics: Percocet, let gel, lidocaine Prescription: Tramadol Impression: Laceration Lower extremity injury, right Plan: 1. You were evaluated today on an emergent basis. Your x-ray shows no fracture. Keep the suture site clean and dry. Wash gently with mild soap and water twice daily. Continue to monitor the site for signs of infection. You can use bacitracin for the first 1 to 2 days, then leave dry. Sutures should be removed in the next 7 to 10 days. Please avoid doing any activities that would cause your sutures to break open. If your symptoms should worsen, new symptoms develop or any of the signs and symptoms we discussed should arise please return to the emergency room or call 911 (if needed). 2. You can alternate Tylenol and ibuprofen as needed for pain and fever management. Tramadol as needed for moderate to severe pain. This medication may cause drowsiness so do not take it while driving or needing to be functioning outside of the house. 3. We encourage you to follow up with your primary care provider and/or recommended specialist in the next few days for re-evaluation and further care/management. Definitive disposition and diagnosis as appropriate pending reevaluation and review of above. Right oscar Pain Score (Numeric/FACES): 7 - Related Data Allergies Allergy/AdvReac Type Severity Reaction Status Date / Time No Known Allergies Allergy Verified 04/19/21 13:47 Home Meds: Home Meds metFORMIN [Glucophage] 750 mg PO DAILY 04/19/21 [History] traMADol [Ultram] 50 mg PO Q4H PRN #15 tab 04/19/21 [Rx] Past Medical History HEENT History: Reports: Sinusitis Gastrointestinal History: Reports: Chronic Constipation Genitourinary History: Reports: None, Other (See Below) (h/o UTI) [employer]PER[employer]OR History: Reports: Dysfunctional Uterine Bleeding, Polycystic Ovaries, , Spontaneous Endocrine/Metabolic History: Reports: Other (See Below) Other Endocrine/Metabolic History: hx hypothyroidism in the past, no longer on meds Hematologic History: Reports: Anemia - Past Surgical History Female Surgical History: Reports: Section, Dilitation & Evacuation Social & Family History - Family History Family Medical History: No Pertinent Family History - Caffeine Use Caffeine Use: Reports: None ED ROS GENERAL - Review of Systems Review Of Systems: Comprehensive ROS is negative, except as noted in HPI. ED EXAM, SKIN/RASH Exam: See Below (See dictation) ED SKIN PROCEDURES - Laceration/Wound Repair Right oscar Appearance: Subcutaneous, Irregular, Clean Distal NVT: Neuro & Vascular Intact, No Tendon Injury Anesthetic Type: Local Local Anesthesia - Lidocaine (Xylocaine): 1% Plain Local Anesthetic Volume: 2cc Skin Prep: Chlorhexidine (Hibiciens), Saline, Sterile Drape Saline Irrigation (cc's): 500 Exploration/Debridement/Repair: Wound Explored, In a Bloodless Field, Explored to Base, No Foreign Material Found Closed with: Sutures Lac/Wound length In cm: 12 Suture Size: 4-0 # of Sutures: 14 Suture Type: Nylon, Interrupted, Simple Drain Placement: No Sterile Dressing Applied: None Tetanus Status Addressed: Yes Complications: No Course - Vital Signs Last Recorded V/S: Last Vital Signs Temp 96.7 F L 04/19/21 13:48 Pulse 84 04/19/21 13:48 Resp 17 04/19/21 13:48 BP 148/73 H 04/19/21 13:48 Pulse Ox 97 04/19/21 13:48 - Orders/Labs/Meds Meds: Medications Discontinued Medications Generic Name Dose Route Start Last Admin Trade Name Freq PRN Reason Stop Dose Admin Bacitracin 1 dose 04/19/21 13:05 04/19/21 13:43 Bacitracin Oint 1 Gm U/D Packet TOP 04/19/21 13:06 1 dose ONETIME ONE Administration Diphtheria/Tetanus/Acell Pertussis 0.5 ml 04/19/21 13:05 04/19/21 13:47 Diphtheria,Pertussis(Acell),Tetanus Vaccine 0.5 Ml Syringe IM 04/19/21 13:06 0.5 ml .ONCE ONE Administration Lidocaine HCl Confirm 04/19/21 14:13 Xylocaine-Mpf 1% Administered 04/19/21 14:14 Dose 2 mls @ as directed .ROUTE .STK-MED ONE Lidocaine HCl 2 ml 04/19/21 13:28 04/19/21 13:52 Lidocaine 1% Pf 2 Ml Sdv INJECT 04/19/21 13:29 2 ml ONETIME ONE Administration Lidocaine/Tetracaine 1 ml 04/19/21 13:28 04/19/21 13:52 Lidocaine/Epinephrine/Tetracaine Soln 1 Ml TOP 04/19/21 13:29 1 ml ONETIME ONE Administration Oxycodone/Acetaminophen 1 tab 04/19/21 13:28 04/19/21 13:45 Acetaminophen/Oxycodone 325-5 Mg Tab PO 07/15/21 13:29 1 tab ONETIME ONE Administration Departure - Departure Time of Disposition: 16:40 Disposition: Home, Self-Care 01 Clinical Impression: Laceration Lower extremity injury Qualifiers: Encounter type: initial encounter Laterality: right Qualified Code(s): S89.91XA - Unspecified injury of right lower leg, initial encounter - Discharge Information Prescriptions: traMADol [Ultram] 50 mg PO Q4H PRN #15 tab PRN Reason: Pain Instructions: Laceration Care, Adult, [id number] Referrals: Niranjan Hale MD [Primary Care Provider] - Forms: ED Department Discharge Additional Instructions: The following information is given to patients seen in the emergency department who are being discharged to home. This information is to outline your options for follow-up care. We provide all patients seen in our emergency department with a follow-up referral. The need for follow-up, as well as the timing and circumstances, are variable depending upon the specifics of your emergency department visit. If you don't have a primary care physician on staff, we will provide you with a referral. We always advise you to contact your personal physician following an emergency department visit to inform them of the circumstance of the visit and for follow-up with them and/or the need for any referrals to a consulting specialist. The emergency department will also refer you to a specialist when appropriate. This referral assures that you have the opportunity for follow-up care with a specialist. All of these measure are taken in an effort to provide you with optimal care, which includes your follow-up. Under all circumstances we always encourage you to contact your private ysician who remains a resource for coordinating your care. When calling for follow-up care, please make the office aware that this follow-up is from your recent emergency room visit. If for any reason you are refused follow-up, please contact the [facility] Emergency Department at and asked to speak to the emergency department charge nurse. [facility] Primary Care [address] [place] [id number] [id number] Thank you for choosing the [facility] emergency department in [place] for your medical needs today. It was a pleasure caring for you. Today you were seen in the emergency department for laceration care 1. You were evaluated today on an emergent basis. Your x-ray shows no fracture. Keep the suture site clean and dry. Wash gently with mild soap and water twice daily. Continue to monitor the site for signs of infection. You can use bacitracin for the first 1 to 2 days, then leave dry. Sutures should be removed in the next 7 to 10 days. Please avoid doing any activities that would cause your sutures to break open. If your symptoms should worsen, new symptoms develop or any of the signs and symptoms we discussed should arise please return to the emergency room or call 911 (if needed). 2. You can alternate Tylenol and ibuprofen as needed for pain and fever management. Tramadol as needed for moderate to severe pain. This medication may cause drowsiness so do not take it while driving or needing to be functioning outside of the house. 3. We encourage you to follow up with your primary care provider and/or recommended specialist in the next few days for re-evaluation and further care/management. Sepsis Event Note (ED) - Focused Exam Vital Signs: Vital Signs Temp Pulse Resp BP Pulse Ox 04/19/21 13:48 96.7 F L 84 17 148/73 H 97
[2021-04-19 13:52] VITALS: BP 148/73; PULSE 84
[2021-04-19] MEDS ORDERED: Lidocaine 1% 2 ML ONE (14:13)
--- NOTE | 2021-04-19 14:50 | CR ---
Indication: Pain Comparison: None available. Technique: AP and lateral views right tibia and fibula were obtained Findings: There is no displaced fracture or dislocation. The joint spaces are grossly preserved. There is minimal superficial soft tissue laceration of the mid lower extremity. Impression: Soft tissue laceration of the mid lower extremity without evidence of underlying fracture. Dictated by Zachariah Ballard MD @ 04/19/2021 2:48:[address] Zachariah Ballard @ Apr 19 2021 2:48PM
== END 2021-04-19 15:17 | disposition home or self-care (01) ==
LOC: MW.ED 13:00
DX: S81.811A Laceration without foreign body, right lower leg, initial encounter (principal); Z23 Encounter for immunization; W22.8XXA Striking against or struck by other objects, initial encounter; Y93.39 Activity, other involving climbing, rappelling and jumping off
CPT/HCPCS: 12004; 73590; 90471; 90715; 99283; A9270

== ENCOUNTER 2024-07-12 19:27 | Emergency (ER) | payer BC ==
[2024-07-12] MEDS: Acetaminophen/HYDROcodone 325-5 MG Tab PO ONE (20:14)
[2024-07-12 22:07] VITALS: BP 118/78; PULSE 70
== END 2024-07-12 22:06 | disposition home or self-care (01) ==
LOC: MW.ED 19:27
DX: S01.81XA Laceration without foreign body of other part of head, initial encounter (principal); S06.0X0A Concussion without loss of consciousness, initial encounter; W19.XXXA Unspecified fall, initial encounter
CPT/HCPCS: 12011; 70450; 99283; A9270